=== PATIENT | female | born 1965 | race Caucasian/White ===

== ENCOUNTER 2025-01-25 11:53 | Outpatient (CLI) | payer BC, SELFPAY ==
--- NOTE | ~2025-01-25 | MM_ITS ---
EXAMINATION: MM screening jayson BI w annette HISTORY: Screening TECHNIQUE: Craniocaudal and mediolateral oblique 3-D tomosynthesis images were obtained and synthetic 2-D images were generated. CAD analysis was submitted and interpreted. COMPARISON: No prior mammogram is available for comparison at this institution. BREAST PARENCHYMAL COMPOSITION: There are scattered areas of fibroglandular density. FINDINGS: There is no evidence of suspicious mass, calcification, or architectural distortion in either breast to suggest malignancy IMPRESSION: 1. No mammographic evidence of malignancy. Recommend routine screening mammography in one year. BI-RADS Category 1: Negative Reviewed, dictated and finalized at location Q. IMPRESSION: 1. No mammographic evidence of malignancy. Recommend routine screening mammogra phy in one year. BI-RADS Category 1: Negative
--- NOTE | ~2025-01-25 | DEXA_ITS ---
Bone Density Report Name: SWATHI STEPHENSON Age: 59 Sex: Female Ethnicity: White Date of : 1965 Indication: osteopenia; height loss; Referring Provider: YAMEL, CONNIE Study: Bone densitometry was performed. Exam Date: January 25, 2025 Accession number: [id number] Bone Density: Region BMD T-score Z-score Classification AP Spine(L1-L4) 0.799 -2.3 -0.8 Osteopenia Femoral Neck (Left) 0.669 -1.6 -0.3 Osteopenia Total Hip (Left) 0.929 -0.1 0.9 Normal Femoral Neck (Right) 0.636 -1.9 -0.6 Osteopenia Total Hip (Right) 0.828 -0.9 0.0 Normal Femoral Neck Mean 0.652 -1.8 -0.5 Osteopenia Total Hip Mean 0.878 -0.5 0.4 Normal World Health Organization criteria for BMD impression classify patients as: Normal (T-score at or above -1.0), Osteopenia (T-score between -1.0 and -2.5), or Osteoporosis (T-score at or below -2.5). 10-year Fracture Risk(1): Major Osteoporotic Fracture 8.6% Hip Fracture 1.7% Reported Risk Factors: [place] (), Neck BMD=0.636, BMI=21.5, smoking (1) FRAX(R) Version 3.08. Fracture probability calculated for an untreated patient. Fracture probability may be lower if the patient has received treatment. Previous Exams: Region Exam Age BMD T-score BMD Change BMD Change Date g/cm2 vs Baseline vs Previous AP Spine (L1-L4) 01/25/2025 59 0.799 -2.3 -0.251 (-23.9% -0.251 (-23.9% 12/15/2014 49 1.051 0.0 Total Hip(Left) 01/25/2025 59 0.929 -0.1 0.175 (23.2%)# 0.175 (23.2%)# 12/15/2014 49 0.754 -1.5 Total Hip(Right) 01/25/2025 59 0.828 -0.9 0.064 (8.4%)# 0.064 (8.4%)# 05/28/2012 46 0.764 -1.5 *Denotes significance at 95% confidence level, LSC for AP Spine = 0.022 g/cm2, LSC for Total Hip = 0.027 g/cm2 # Denotes dissimilar scan types or analysis methods Clinical Information Provided by Patient: Smokes Patient maximum height was 61 Menopause Age: 41 No regular weight bearing exercise Does not regularly consume dairy products Drinks caffeinated beverages Onset of menses at age 11 Number of children 1 Impression: The patient has low bone mass, based on the Total Spine T-score. The patient has risk factors, including: smoking. No significant bone loss was observed. Discussion: BONE DENSITY IS LOW AT ONE OR MORE SKELETAL SITES. This patient's lowest T-score is low at one or more skeletal sites. It meets the World Health Organization's (WHO) criteria for ?low bone mass? (T-score between -1.0 and -2.5). The patient's 10-year risk of fracture as calculated by FRAX is less than the threshold where pharmacological therapy is recommended by the National Osteoporosis Foundation (NOF). However, all treatment decisions require clinical judgment and consideration of individual patient factors, including patient preferences, comorbidities, previous drug use, risk factors not captured in the FRAX model (e.g., frailty, falls, vitamin D deficiency, increased bone turnover, interval significant decline in bone density) and possible under or overestimation of fracture risk by FRAX. The patient should follow a healthful lifestyle (good nutrition with adequate calcium and vitamin D, and appropriate weight-bearing exercise). Follow-Up: Consider repeating this study in 2 to 3 years to reassess this patient's status, or sooner if there is some new clinical indication. Reported by: TITI on 02/03/2025 8:09:00 AM. Reviewed, dictated and finalized at location Q.
--- OUTSIDE RECORDS SUMMARY | 2025-01-25 13:36 | XMS_ITS | Encounter Summary ---
Author Organization [facility] Address [address] [place] [address] Care Team Providers Care Special Education Resource Room Teacher Name Role Phone Mayra Bennett Primary Care Provider [phone] Encounter Details Date Type Department Care Team (Latest Contact Info) Description 05/29/2003 Inpatient Historical [facility] Lorie Patterson MD [address] [place] [address] PRIMARY UTERINE INERT-DELIVERED (Primary Dx) Social History Tobacco Use Types Packs/Day Years Used Date Smoking Tobacco: Never Assessed Comments Unknown Sex and Gender Information Value Date Recorded Sex Assigned at Not on file Legal Sex Female 4:56 AM ORANGE PICKING SUPERVISOR Gender Identity Not on file Sexual Orientation Not on file documented as of this encounter Plan of Treatment Not on file documented as of this encounter Visit Diagnoses Diagnosis Primary uterine inertia, with delivery- Primary documented in this encounter Care Teams Special Education Resource Room Teacher Relationship Specialty Start Date End Date Mayra Bennett PA PCP - General Physician Landscape Specialist 12/22/17 documented as of this encounter
--- OUTSIDE RECORDS SUMMARY | 2025-01-25 13:36 | XMS_ITS | Clinical Summary ---
Author Organization [facility] Address [address] [place] [address] Care Team Providers Care Administration Manager Name Role Phone Mayra Bennett Primary Care Provider [phone] Allergies No known active allergies Medications TACLONEX 0.005-0.064 % Suspension APPLY TO THE SCALP ONCE DAILY NEEDED, NO LONGER THAN 14 DAYS AT A TIME. 0 11/20/2017 Active spironolactone (ALDACTONE) 100 mg tablet TAKE 1 TABLET BY MOUTH EVERY DAY 3 04/01/2018 Active Active Problems Problem Noted Date Diagnosed Date Sign and symptom in breast 06/23/2018 Abnormal mammogram of left breast 12/22/2017 Abnormal ultrasound of breast 12/22/2017 Family History Medical History Relation Name Comments Breast Cancer Paternal Aunt 40's Relation Name Status Comments Paternal Aunt Social History Tobacco Use Types Packs/Day Years Used Date Smoking Tobacco: Never Smokeless Tobacco: Never Alcohol Use Standard Drinks/Week Comments Yes 0 (1 standard drink = 0.6 oz pur e alcohol) occasional Comments No Sex and Gender Information Value Date Recorded Sex Assigned at Not on file Legal Sex Female 4:56 AM MEDICAL STAFF CREDENTIALING COORDINATOR Gender Identity Not on file Sexual Orientation Not on file Last Filed Vital Signs Vital Sign Reading Time Taken Comments Blood Pressure 118/88 06/23/2018 12:50 PM MEDICAL STAFF CREDENTIALING COORDINATOR Pulse 77 06/23/2018 12:50 PM MEDICAL STAFF CREDENTIALING COORDINATOR Temperature 36.8 C (98.2 F) 06/23/2018 12:50 PM MEDICAL STAFF CREDENTIALING COORDINATOR Respiratory Rate - - Oxygen Saturation 97% 06/23/2018 12:50 PM MEDICAL STAFF CREDENTIALING COORDINATOR Inhaled Oxygen Concentration - - Weight 45.9 kg (101 lb 4.8 oz) 06/23/2018 12:50 PM MEDICAL STAFF CREDENTIALING COORDINATOR Height 154.9 cm (5' 1) 06/23/2018 12:50 PM MEDICAL STAFF CREDENTIALING COORDINATOR Body Mass Index 19.14 06/23/2018 12:50 PM MEDICAL STAFF CREDENTIALING COORDINATOR Plan of Treatment Health Maintenance Due Date Last Done Comments DTAP/TDAP/TD VACCINES (1 - Tdap) 08/15/1983 HPV/Cotest (21-29) 1985 CERVICAL CANCER SCREENING 1994 HPV/Cotest (30-65) 1994 PAP SMEAR 1994 COLORECTAL SCREENING 2009 Colorectal Cancer Screening 2009 FIT-DNA Q 3 years 2009 FIT/FOBT Q 1 year 2009 Flex Sig/CT Colonography Q 5 years 2009 ZOSTER VACCINE (1 of 2) 2014 BREAST CANCER SCREENING 12/14/2018 12/15/19 18, 11/27/2017 INFLUENZA VACCINE (#1) 2024 RSV VACCINE (60+ or ) (1 - 1-dose 75+ series) 08/15/2039 HEPATITIS B VACCINES Aged Out No long er eligible based on patient's age to complete this topic Procedures Procedure Name Priority Date/Time Associated Diagnosis Comments MAMMO UNILATERAL DIAG LEFT Routine 12/14/2017 from Last 3 Months or Most Recently Relevant to Health Maintenance Results * MAMMO UNILATERAL DIAG LEFT (12/14/2017) Anatomical Region Laterality Modality Breast Left Mammography us Abstract Provider MAMMO ORDERABLES Edited Result - Final from Last 3 Months or Most Recently Relevant to Health Maintenance Insurance [facility] ACCESS/TRUE BLUE PPO Care Teams Administration Manager Relationship Specialty Start Date End Date Mayra Bennett PA PCP - General Physician Electrical Engineer 12/22/17
--- OUTSIDE RECORDS SUMMARY | 2025-01-25 13:36 | XMS_ITS | Encounter Summary ---
Author Organization [facility] Address [address] [place] [address] Care Team Providers Care News Broadcaster Name Role Phone Mayra Bennett Primary Care Provider Encounter Details Date Type Department Care Team (Late st Contact Info) Description 11/23/2002 Outpatient Historical [facility] Maternal and Ground Floor S [facility] [address] [place] [address] Lorie Patterson MD [address] [place] [address] Social History Tobacco Use Types Packs/Day Years Used Date Smoking Tobacco: Never Assessed Comments Unknown Sex and Gender Information Value Date Recorded Sex Assigned at Not on file Legal Sex Female 4:56 AM DEHYDRATION UNIT OPERATOR Gender Identity Not on file Sexual Orientation Not on file documented as of this encounter Plan of Treatment Not on file documented as of this encounter Visit Diagnoses Not on filedocumented in this encounter Care Teams News Broadcaster Relationship Specialty Start Date End Date Myara Bennett PA PCP - General Physician Dual Rate Dealer 12/22/17 documented as of this encounter
--- OUTSIDE RECORDS SUMMARY | 2025-01-25 13:36 | XMS_ITS | Encounter Summary ---
Author Organization [facility] Address [address] [place] [address] Care Team Providers Care Semiconductors Wafer Breaker Name Role Phone Mayra Bennett Primary Care Provider [phone] Encounter Details Date Type Department Care Team (Latest Contact Info) Description 11/23/[address] [facility] Lorie Patterson MD [address] [place] [address] PREG COMPL NEC-ANTEPART (Primary Dx) Social History Tobacco Use Types Packs/Day Years Used Date Smoking Tobacco: Never Assessed Comments Unknown Sex and Gender Information Value Date Recorded Sex Assigned at Not on file Legal Sex Female 4:56 AM PAD ASSEMBLER Gender Identity Not on file Sexual Orientation Not on file documented as of this encounter Plan of Treatment Not on file documented as of this encounter Visit Diagnoses Diagnosis Other specified complication, antepartum(646.83)- Primary Other specified complication, antepartum documented in this encounter Care Teams Semiconductors Wafer Breaker Relationship Specialty Start Date End Date Mayra Bennett PA PCP - General Physician Oncology Registrar 12/22/17 documented as of this encounter
--- OUTSIDE RECORDS SUMMARY | 2025-01-25 13:36 | XMS_ITS | Encounter Summary ---
Author Organization [facility] Address [address] [place] [address] Care Team Providers Care Medical Records Field Technician Name Role Phone Mayra Bennett Primary Care Provider Encounter Details Date Type Department Care Team (Late st Contact Info) Description 02/27/2003 Outpatient Historical [facility] Maternal and Ground Floor S [facility] [address] [place] [address] Mario Alberto Tiwari MD NO ADDRESS ON FILE Social History Tobacco Use Types Packs/Day Years Used Date Smoking Tobacco: Never Assessed Comments Unknown Sex and Gender Information Value Date Recorded Sex Assigned at Not on file Legal Sex Female 4:56 AM DIRECTOR OF PLACEMENT Gender Identity Not on file Sexual Orientation Not on file documented as of this encounter Plan of Treatment Not on file documented as of this encounter Visit Diagnoses Not on filedocumented in this encounter Care Teams Medical Records Field Technician Relationship Specialty Start Date End Date Mayra Bennett PA PCP - General Physician Floral Manager 12/22/17 documented as of this encounter
--- OUTSIDE RECORDS SUMMARY | 2025-01-25 13:36 | XMS_ITS | Encounter Summary ---
Author Organization [facility] Address [address] [place] [address] Care Team Providers Care Motor Vehicle Inspector Name Role Phone Mayra Bennett Primary Care Provider [phone] Encounter Details Date Type Department Care Team (Late st Contact Info) Description 04/11/2003 Outpatient Historical [facility] Maternal and Ground Floor S [facility] [address] [place] [address] Lorie Patterson MD [address] [place] [address] Social History Tobacco Use Types Packs/Day Years Used Date Smoking Tobacco: Never Assessed Comments Unknown Sex and Gender Information Value Date Recorded Sex Assigned at Not on file Legal Sex Female 4:56 AM MAJOR GIFTS MANAGER Gender Identity Not on file Sexual Orientation Not on file documented as of this encounter Plan of Treatment Not on file documented as of this encounter Visit Diagnoses Not on filedocumented in this encounter Care Teams Motor Vehicle Inspector Relationship Specialty Start Date End Date Mayra Bennett PA PCP - General Physician Writing Center Director 12/22/17 documented as of this encounter
--- OUTSIDE RECORDS SUMMARY | 2025-01-25 13:36 | XMS_ITS | Encounter Summary ---
Author Organization [facility] Address [address] [place] [address] Care Team Providers Care Residential Fee Appraiser Name Role Phone Mayra Bennett Primary Care Provider [phone] Encounter Details Date Type Department Care Team (Latest Contact Info) Description 04/11/2003 Outpatient Historical [facility] Lorie Patterson MD [address] [place] [address] INFECTION-ANTEPARTUM (Primary Dx) Social History Tobacco Use Types Packs/Day Years Used Date Smoking Tobacco: Never Assessed Comments Unknown Sex and Gender Information Value Date Recorded Sex Assigned at Not on file Legal Sex Female 4:56 AM SPECIMEN TRANSPORTER Gender Identity Not on file Sexual Orientation Not on file documented as of this encounter Plan of Treatment Not on file documented as of this encounter Visit Diagnoses Diagnosis Infections of genitourinary tract antepartum- Primary documented in this encounter Care Teams Residential Fee Appraiser Relationship Specialty Start Date End Date Mayra Bennett PA PCP - General Physician Property Management Supervisor 12/22/17 documented as of this encounter
--- OUTSIDE RECORDS SUMMARY | 2025-01-25 13:36 | XMS_ITS | Encounter Summary ---
Author Organization [facility] Address [address] [place] [address] Care Team Providers Care Pack Changer Name Role Phone Mayra Bennett Primary Care Provider [phone] Encounter Details Date Type Department Care Team (Latest Contact Info) Description 05/16/2003 Outpatient Historical [facility] Lorie Patterson MD [address] [place] [address] PREG COMPL NEC-ANTEPART (Primary Dx) Social History Tobacco Use Types Packs/Day Years Used Date Smoking Tobacco: Never Assessed Comments Unknown Sex and Gender Information Value Date Recorded Sex Assigned at Not on file Legal Sex Female 4:56 AM THAW SHED HEATER TENDER Gender Identity Not on file Sexual Orientation Not on file documented as of this encounter Plan of Treatment Not on file documented as of this encounter Visit Diagnoses Diagnosis Other specified complication, antepartum(646.83)- Primary Other specified complication, antepartum documented in this encounter Care Teams Pack Changer Relationship Specialty Start Date End Date Mayra Bennett PA PCP - General Physician Mat Inspector 12/22/17 documented as of this encounter
--- OUTSIDE RECORDS SUMMARY | 2025-01-25 13:36 | XMS_ITS | Encounter Summary ---
Author Organization [facility] Address [address] [place] [address] Care Team Providers Care Carpenter'S Assistant Name Role Phone Mayra Bennett Primary Care Provider [phone] Encounter Details Date Type Department Care Team (Late st Contact Info) Description 01/16/2003 Outpatient Historical [facility] Maternal and Ground Floor S [facility] [address] [place] [address] Lorie Patterson MD [address] [place] [address] Social History Tobacco Use Types Packs/Day Years Used Date Smoking Tobacco: Never Assessed Comments Unknown Sex and Gender Information Value Date Recorded Sex Assigned at Not on file Legal Sex Female 4:56 AM CURRICULUM SPECIALIST Gender Identity Not on file Sexual Orientation Not on file documented as of this encounter Plan of Treatment Not on file documented as of this encounter Visit Diagnoses Not on filedocumented in this encounter Care Teams Carpenter'S Assistant Relationship Specialty Start Date End Date Mayra Bennett PA PCP - General Physician Outer Diameter Grinder 12/22/17 documented as of this encounter
--- OUTSIDE RECORDS SUMMARY | 2025-01-25 13:36 | XMS_ITS | Encounter Summary ---
Author Organization [facility] Address [address] [place] [address] Care Team Providers Care Health And Safety Consultant Name Role Phone Mayra Bennett Primary Care Provider [phone] Encounter Details Date Type Department Care Team (Latest Contact Info) Description 03/02/2003 Outpatient Historical HIS PATIENT IN A BED Lorie Patterson MD [address] [place] [address] THRT DONYA LABOR-ANTEPART (Primary Dx) Social History Tobacco Use Types Packs/Day Years Used Date Smoking Tobacco: Never Assessed Comments Unknown Sex and Gender Information Value Date Recorded Sex Assigned at Not on file Legal Sex Female 4:56 AM CERAMIC RESTORER Gender Identity Not on file Sexual Orientation Not on file documented as of this encounter Plan of Treatment Not on file documented as of this encounter Visit Diagnoses Diagnosis Threatened premature labor, antepartum(644.03)- Primary Threatened premature labor, antepartum documented in this encounter Care Teams Health And Safety Consultant Relationship Specialty Start Date End Date Mayra Bennett PA PCP - General Physician Technician Biological Health 12/22/17 documented as of this encounter
--- OUTSIDE RECORDS SUMMARY | 2025-01-25 13:36 | XMS_ITS | Encounter Summary ---
Author Organization [facility] Address [address] [place] [address] Care Team Providers Care Shade Cloth Finisher Name Role Phone Mayra Bennett Primary Care Provider Encounter Details Date Type Department Care Team (Latest Contact Info) Description 01/16/2003 Outpatient Historical [facility] Lorie Patterson MD [address] [place] [address] PREG COMPL NEC-ANTEPART (Primary Dx) Social History Tobacco Use Types Packs/Day Years Used Date Smoking Tobacco: Never Assessed Comments Unknown Sex and Gender Information Value Date Recorded Sex Assigned at Not on file Legal Sex Female 4:56 AM PROCESS SPECIALIST Gender Identity Not on file Sexual Orientation Not on file documented as of this encounter Plan of Treatment Not on file documented as of this encounter Visit Diagnoses Diagnosis Other specified complication, antepartum(646.83)- Primary Other specified complication, antepartum documented in this encounter Care Teams Shade Cloth Finisher Relationship Specialty Start Date End Date Mayra Bennett PA PCP - General Physician Patch Finisher 12/22/17 documented as of this encounter
--- OUTSIDE RECORDS SUMMARY | 2025-01-25 13:36 | XMS_ITS | Encounter Summary ---
Author Organization [facility] Address [address] [place] [address] Care Team Providers Care Database Administration Project Manager Name Role Phone Mayra Bennett Primary Care Provider [phone] Encounter Details Date Type Department Care Team (Late st Contact Info) Description 05/16/2003 Outpatient Historical [facility] Maternal and Ground Floor S [facility] [address] [place] [address] Lorie Patterson MD [address] [place] [address] Social History Tobacco Use Types Packs/Day Years Used Date Smoking Tobacco: Never Assessed Comments Unknown Sex and Gender Information Value Date Recorded Sex Assigned at Not on file Legal Sex Female 4:56 AM MAIL SORTING SUPERVISOR Gender Identity Not on file Sexual Orientation Not on file documented as of this encounter Plan of Treatment Not on file documented as of this encounter Visit Diagnoses Not on filedocumented in this encounter Care Teams Database Administration Project Manager Relationship Specialty Start Date End Date Mayra Bennett PA PCP - General Physician Supervisor Publications Production 12/22/17 documented as of this encounter
--- OUTSIDE RECORDS SUMMARY | 2025-01-25 13:36 | XMS_ITS | Encounter Summary ---
Author Organization [facility] Address [address] [place] [address] Care Team Providers Care Script Writer Name Role Phone Mayra Bennett Primary Care Provider [phone] Encounter Details Date Type Department Care Team (Latest Contact Info) Description 02/27/2003 Outpatient Historical [facility] Lorie Patterson MD [address] [place] [address] PREG COMPL NEC-ANTEPART (Primary Dx) Social History Tobacco Use Types Packs/Day Years Used Date Smoking Tobacco: Never Assessed Comments Unknown Sex and Gender Information Value Date Recorded Sex Assigned at Not on file Legal Sex Female 4:56 AM THREAD GRINDER Gender Identity Not on file Sexual Orientation Not on file documented as of this encounter Plan of Treatment Not on file documented as of this encounter Visit Diagnoses Diagnosis Other specified complication, antepartum(646.83)- Primary Other specified complication, antepartum documented in this encounter Care Teams Script Writer Relationship Specialty Start Date End Date Mayra Bennett PA PCP - General Physician Facetor 12/22/17 documented as of this encounter
== END 2025-01-25 11:54 | disposition home or self-care (01) ==
LOC: CHSIMG 11:54
PROVIDERS: PCP Physician Assistant; Visit Provider Physician Assistant
DX: Z12.31 Encounter for screening mammogram for malignant neoplasm of breast (principal); Z78.0 Asymptomatic menopausal state; M85.89 Other specified disorders of bone density and structure, multiple sites
CPT/HCPCS: 77063; 77067; 77080